=== PATIENT | male | born 1990 | race Hispanic/Latino ===

== ENCOUNTER 2022-09-30 20:27 | Emergency (ER) | payer OTHER, BC | END 2022-09-30 21:23 | disposition home or self-care (01) | LOC: NAV ERS 20:27 | DX: S80.02XA Contusion of left knee, initial encounter (principal); F17.220 Nicotine dependence, chewing tobacco, uncomplicated; W01.0XXA Fall on same level from slipping, tripping and stumbling without subsequent striking against object, initial encounter ==